=== PATIENT | female | born 1955 | race Asian ===

== ENCOUNTER 2022-09-20 21:31 | Inpatient (IN) | payer BC, MEDICARE ==
[~2022-09-20] VITALS: Ht 162.6 cm; Wt 65.5 kg
[2022-09-20] MEDS ORDERED: OXYC10TA59 PO (22:00)
[2022-09-20] MEDS ORDERED: MORPHINE SULFATE 4 MG/ML SYRINGE IVP ONE (22:15)
[2022-09-20] MEDS ORDERED: CeFAZolin 2 GM/DEXTROSE 50 ML IV ONE (22:30)
[2022-09-20 22:50] LABS: BASOPHILS % (AUTO) 0.3 % (0.0-2.0); EOSINOPHILS % (AUTO) 1.1 % (1.0-6.0); HEMATOCRIT 29.9 % (36-46); MEAN CORPUSCULAR HEMOGLOBIN 31.6 pg (26.0-34.0); MEAN CORPUSCULAR HGB CONC 33.5 G/dL (31.0-37.0); MEAN CORPUSCULAR VOLUME 94 fL (80-100); MONOCYTES % (AUTO) 11.4 % (2.0-9.0); NEUTROPHILS # (AUTO) 6.8 K/uL (1.8-7.7); NEUTROPHILS % (AUTO) 76.2 % (40.0-70.0); PLATELET COUNT (AUTO) 182 K/uL (150-450); RED BLOOD CELL COUNT(AUTO) 3.17 MIL/uL (4.00-5.20); RED CELL DISTRIBUTION WIDTH 12.3 % (11.5-14.5)
[2022-09-20 22:54] LABS: ANION GAP 4 mmol/L (8-16); CALCIUM, TOTAL 8.3 mg/dL (8.8-10.5); CARBON DIOXIDE 32 mmol/L (22-29); CHLORIDE 100 mmol/L (98-107); CREATININE 0.72 mg/dL (0.60-1.30); GLOMERULAR FILTR. RATE CALC > 60 mL/min (>60); GLUCOSE,RANDOM 159 mg/dL (70-110); SODIUM SERUM 136 mmol/L (136-145)
[2022-09-21] MEDS ORDERED: HYDROCODONE/ACETAMINOPHEN 5-325 MG TABLET PO PRN
[2022-09-21] MEDS ORDERED: ACETAMINOPHEN 325 MG TABLET PO PRN
[2022-09-21] MEDS ORDERED: ONDANSETRON HCL 4 MG/2 ML VIAL IVP PRN
[2022-09-21] MEDS ORDERED: RINGERS SOLUTION,LACTATED 500 ML IV ONE (03:45)
[2022-09-21] MEDS ORDERED: POTASSIUM CHLORIDE 10% 40 MEQ/30 ML LIQUID UDCUP PO ONE (03:45)
[2022-09-21] MEDS ORDERED: MORPHINE SULFATE 2 MG/ML SYRINGE IVP PRN ×2 (03:45)
[2022-09-21 04:24] LABS: APPEARANCE,URINE CLEAR (CLEAR); BILIRUBIN,URINE NEGATIVE (NEGATIVE); GLUCOSE, URINE (UA) NEGATIVE (NEGATIVE); KETONES,URINE NEGATIVE (NEGATIVE); LEUKOCYTE ESTERASE ,URINE NEGATIVE (NEGATIVE); NITRATE,URINE NEGATIVE (NEGATIVE); OCCULT BLOOD,URINE NEGATIVE (NEGATIVE); PH,URINE 5.5 (5.0-8.0); PROTEIN,URINE NEGATIVE (NEGATIVE); SPECIFIC GRAVITIY, URINE 1.012 (1.003-1.030); UROBILINOGEN,URINE <=1.0 mg/dL (<=1.0)
[2022-09-21] MEDS ORDERED: DEXTROSE 50%-WATER 25 GM/50 ML SYRINGE IVP PRN (04:30)
[2022-09-21] MEDS ORDERED: INSULIN LISPRO 100 UNITS/ML SQ PRN (04:30)
[2022-09-21] MEDS ORDERED: SODIUM CHLORIDE 0.9% 100 ML ONE (04:56)
[2022-09-21] MEDS ORDERED: IOHEXOL 350 MG/ML 100 ML VIAL ONE (04:57)
[2022-09-21 05:00] LABS: ALBUMIN 2.7 g/dL (3.4-5.0); BILIRUBIN,DIRECT 0.1 mg/dL (0.00-0.20); BILIRUBIN,TOTAL 0.4 mg/dL (0.1-1.0); TOTAL PROTEIN, SERUM 6.1 g/dL (6.4-8.2)
[2022-09-21] MEDS: KETOROLAC TROMETHAMINE 15 MG/ML VIAL IVP PRN ×2 (06:00→15:46)
[2022-09-21] MEDS: ENOXAPARIN SODIUM 40 MG/0.4 ML PF SYRINGE SQ SCH (08:50)
[2022-09-21 18:13] VITALS: BP 118/77; PULSE 83; RESP 20; TEMP 98.9
[2022-09-21 20:16] LABS: GLUCOMETER DEV NAME(LOC) 6N.2B
[2022-09-21 20:53] VITALS: BP 111/71; PULSE 85; RESP 20; TEMP 98.9
[2022-09-21] MEDS ORDERED: LORazepam 0.5 MG TABLET PO PRN (21:30)
[2022-09-21] MEDS: ALPRAZolam 0.25 MG TABLET PO PRN (22:45)
[2022-09-22 04:45] VITALS: BP 123/78; PULSE 86; RESP 20; TEMP 98.7
[2022-09-22 05:00] VITALS: BP 116/76; PULSE 80; RESP 20; TEMP 97.9
[2022-09-22] MEDS: KETOROLAC TROMETHAMINE 15 MG/ML VIAL IVP PRN ×2 (05:30→17:31)
[2022-09-22 08:11] LABS: GLUCOMETER DEV NAME(LOC) 6N.1
[2022-09-22] MEDS: ENOXAPARIN SODIUM 40 MG/0.4 ML PF SYRINGE SQ SCH (08:12)
[2022-09-22] MEDS ORDERED: VENLAFAXINE HCL 37.5 MG TABLET PO SCH (09:00)
[2022-09-22] MEDS ORDERED: ROSU10TA72 PO (11:06)
[2022-09-22] MEDS ORDERED: VENL-67 PO (11:06)
[2022-09-22] MEDS ORDERED: METF-81 PO (11:06)
[2022-09-22] MEDS ORDERED: VALS1TAB81 PO (11:06)
[2022-09-22] MEDS ORDERED: MELO-106 PO (11:06)
[2022-09-22 12:22] LABS: GLUCOMETER DEV NAME(LOC) 4E.2
[2022-09-22] MEDS: OxyCODONE HCL 10 MG ER TABLET PO SCH ×3 (16:00→23:55)
[2022-09-22] MEDS: MetFORMIN HCL 500 MG ER TABLET PO SCH (17:31)
[2022-09-22 20:22] VITALS: BP 103/66; PULSE 77; RESP 20; TEMP 98.4
[2022-09-22] MEDS: ALPRAZolam 0.25 MG TABLET PO PRN (20:31)
[2022-09-23] MEDS: KETOROLAC TROMETHAMINE 15 MG/ML VIAL IVP PRN ×3 (00:28→22:03)
[2022-09-23 06:04] VITALS: BP 105/68; PULSE 75; RESP 20; TEMP 98.2
[2022-09-23 06:31] LABS: GLUCOMETER DEV NAME(LOC) 6S.2
[2022-09-23] MEDS: OxyCODONE HCL 10 MG ER TABLET PO SCH ×2 (08:00→16:00)
[2022-09-23 08:25] VITALS: BP 120/73; PULSE 76; RESP 19; TEMP 97.2
[2022-09-23] MEDS: ENOXAPARIN SODIUM 40 MG/0.4 ML PF SYRINGE SQ SCH (08:35)
[2022-09-23] MEDS: ROSUVASTATIN CALCIUM 10 MG TABLET PO SCH (08:35)
[2022-09-23] MEDS: VENLAFAXINE HCL 75 MG ER CAPSULE PO SCH (08:35)
[2022-09-23 11:41] LABS: GLUCOMETER DEV NAME(LOC) 6N.1
[2022-09-23] MEDS ORDERED: GuaiFENesin/D-METHORPHAN [SUGAR-FREE] 200-20MG/10 ML SYRUP UDCUP PO PRN (12:00)
[2022-09-23 12:46] LABS: BASOPHILS % (AUTO) 0.7 % (0.0-2.0); EOSINOPHILS % (AUTO) 5.3 % (1.0-6.0); HEMATOCRIT 28.7 % (36-46); HEMOGLOBIN 9.5 g/dL (12.0-16.0); LYMPHOCYTES # (AUTO) 1.4 K/uL (1.0-4.8); LYMPHOCYTES % (AUTO) 24.2 % (22.0-44.0); MEAN CORPUSCULAR HEMOGLOBIN 31.3 pg (26.0-34.0); MEAN CORPUSCULAR HGB CONC 33.2 G/dL (31.0-37.0); MEAN CORPUSCULAR VOLUME 94 fL (80-100); MONOCYTES # (AUTO) 0.5 K/uL (0.1-1.0); MONOCYTES % (AUTO) 8.5 % (2.0-9.0); NEUTROPHILS # (AUTO) 3.5 K/uL (1.8-7.7); NEUTROPHILS % (AUTO) 61.3 % (40.0-70.0); PLATELET COUNT (AUTO) 272 K/uL (150-450); RED BLOOD CELL COUNT(AUTO) 3.04 MIL/uL (4.00-5.20); RED CELL DISTRIBUTION WIDTH 12.3 % (11.5-14.5)
[2022-09-23 12:55] LABS: ANION GAP 6 mmol/L (8-16); CALCIUM, TOTAL 8.6 mg/dL (8.8-10.5); CARBON DIOXIDE 31 mmol/L (22-29); CHLORIDE 102 mmol/L (98-107); CREATININE 0.74 mg/dL (0.60-1.30); GLOMERULAR FILTR. RATE CALC > 60 mL/min (>60); GLUCOSE,RANDOM 138 mg/dL (70-110); POTASSIUM 3.7 mmol/L (3.5-5.1); SODIUM SERUM 139 mmol/L (136-145)
[2022-09-23 13:01] LABS: ALANINE AMINOTRANSFERASE 50 U/L (12-78); ALBUMIN 2.6 g/dL (3.4-5.0); ALKALINE PHOSPHATASE 64 U/L (46-116); ASPARTATE AMINOTRANSFERASE 52 U/L (15-37); BILIRUBIN,TOTAL 0.3 mg/dL (0.1-1.0); TOTAL PROTEIN, SERUM 6.3 g/dL (6.4-8.2)
[2022-09-23 15:00] VITALS: BP 110/62; PULSE 74; RESP 16; TEMP 98.7
[2022-09-23] MEDS: MetFORMIN HCL 500 MG ER TABLET PO SCH (17:06)
[2022-09-23 20:17] VITALS: BP 117/76; PULSE 80; RESP 20; TEMP 98.7
[2022-09-23] MEDS ORDERED: MAGNESIUM HYDROXIDE SUSPENSION 30 ML UDCUP PO PRN (21:00)
[2022-09-23] MEDS ORDERED: LACTULOSE 20 GM/30 ML SOLUTION UDCUP PO PRN (21:00)
[2022-09-23] MEDS: DOCUSATE SODIUM 100 MG CAPSULE PO SCH (21:07)
[2022-09-24 05:26] VITALS: BP 124/73; PULSE 65; RESP 20; TEMP 98.3
[2022-09-24 06:11] LABS: GLUCOMETER DEV NAME(LOC) 4E.2
[2022-09-24 06:16] LABS: GLUCOMETER DEV NAME(LOC) 6N.1
[2022-09-24 06:16] LABS: GLUCOMETER DEV NAME(LOC) 6N.1
[2022-09-24 06:22] LABS: GLUCOMETER DEV NAME(LOC) 6S.2
[2022-09-24 08:06] VITALS: BP 107/61; PULSE 64; RESP 19; TEMP 98.2
[2022-09-24] MEDS: ROSUVASTATIN CALCIUM 10 MG TABLET PO SCH (08:10)
[2022-09-24] MEDS: ENOXAPARIN SODIUM 40 MG/0.4 ML PF SYRINGE SQ SCH (08:10)
[2022-09-24] MEDS: OxyCODONE HCL 10 MG ER TABLET PO SCH ×3 (08:10→15:08)
[2022-09-24] MEDS: VENLAFAXINE HCL 75 MG ER CAPSULE PO SCH (08:10)
[2022-09-24] MEDS: DOCUSATE SODIUM 100 MG CAPSULE PO SCH (08:11)
[2022-09-24 11:36] LABS: GLUCOMETER DEV NAME(LOC) 6N.2B
[2022-09-24] MEDS ORDERED: DOCU-385 PO (11:39)
[2022-09-24] MEDS ORDERED: ENOX40SY14 SQ (11:40)
[2022-09-24] MEDS ORDERED: ALPR-705 PO (11:49)
[2022-09-24] MEDS ORDERED: GUAIF10 PO (11:49)
[2022-09-24] MEDS ORDERED: LACT10SO10 PO (11:50)
[2022-09-24] MEDS ORDERED: MAGN-169 PO (11:51)
== END 2022-09-24 15:31 | DRG 948 ==
LOC: EMS 21:34 → AHU 09-21 07:12 → 6S 09-21 17:32
PROVIDERS: ADMIT Internal Medicine; ATTEND Internal Medicine
DX: G89.18 Other acute postprocedural pain (principal); M25.551 Pain in right hip; Z96.641 Presence of right artificial hip joint; R09.02 Hypoxemia; R33.9 Retention of urine, unspecified; E11.9 Type 2 diabetes mellitus without complications; E87.6 Hypokalemia; D64.9 Anemia, unspecified; R05.9 Cough, unspecified; Z79.899 Other long term (current) drug therapy
CPT/HCPCS: 51702; 71275; 73502; 80048; 80053; 80076; 81003; 82962; 83036; 83735; 84484; 85025; 87081; 99285; J0690; J1650; J1885; J2270; J2405; J7050; J7120; Q9967